=== PATIENT | male | born 1960 | race African-American/Black ===

== ENCOUNTER 2020-06-17 00:43 | Inpatient (IN) | payer MEDICAID ==
[~2020-06-17] VITALS: Ht 177.8 cm; Wt 81.9 kg
--- NOTE | 2020-06-17 01:00 | NUR ---
PT HERE VIA [facility], STATES WAS SITTING IN CHAIR AND FELL OUT, STATES THAT HE HAD A SEIZURE AND HAS A HX OF SAME, HR 125 WITH SOME ECTOPY, PT STATES THAT HE HAS HAD CHEST PAIN ON AND OFF FOR "A LONG TIME" PT POOR DIFFICULT HISTORIAN
--- NOTE | 2020-06-17 01:26 | NUR ---
PT PULLED OUT IV, WILL RESTART AFTER FILMS COMPLETED RADIOLOGY AT BEDSIDE WELL [facility]
[2020-06-17] MEDS ORDERED: SODIUM CHLORIDE 0.9% 1,000ML IVBOLUS ONE (01:30)
[2020-06-17 01:59] LABS: ALANINE AMINOTRANSFERASE 59 U/L (12-78); ALBUMIN 3.8 g/dL (3.4-5.0); ANION GAP 8 mmol/L (5-15); CALCIUM 9.1 mg/dL (8.5-10.1); CHLORIDE 105 mmol/L (98-107); CREATININE 1.21 mg/dL (0.7-1.3)
[2020-06-17 02:00] LABS: MEAN CORPUSCULAR HEMOGLOBIN 32.1 pg (27.5-34.5); MEAN CORPUSCULAR HGB CONC 33.7 g/dL (33.2-36.2); MEAN CORPUSCULAR VOLUME 95.3 fL (81-97); MEAN PLATELET VOLUME 7.5 fL (7.4-10.4); PLATELET COUNT 232 x10^3/uL (130-400); RED BLOOD COUNT 5.03 x10^6/uL (4.38-5.82); RED CELL DISTRIBUTION WIDTH 12.9 % (9.4-14.8)
[2020-06-17 02:03] LABS: ALKALINE PHOSPHATASE 50 U/L (45-117); BILIRUBIN,TOTAL 0.3 mg/dL (0.2-1.0); TROPONIN I 0.345 ng/mL (0.000-0.045)
[2020-06-17] MEDS ORDERED: ASPIRIN 81 MG TABLET CHEW ONE (02:23)
[2020-06-17] MEDS ORDERED: ASPIRIN 325 MG TABLET PO ONE (02:30)
[2020-06-17 02:51] LABS: BASOPHILS # (AUTO) 0.01 x10^3/uL (0-0.1); BASOPHILS % (AUTO) 0 % (0-1); EOSINOPHILS # (AUTO) 0.05 x10^3/uL (0-0.4); EOSINOPHILS % (AUTO) 1 % (1-7); LYMPHOCYTES # (AUTO) 1.58 x10^3/uL (1-3.4); LYMPHOCYTES % (AUTO) 34 % (22-44); MD SCAN; MONOCYTES # (AUTO) 0.37 x10^3/uL (0.2-0.8); MONOCYTES % (AUTO) 8 % (2-9); NEUTROPHILS % (AUTO) 57 % (42-75)
[2020-06-17] MEDS ORDERED: OMNIPAQUE 350 MG/ML, 75ML BOTTLE ONE (03:06)
[2020-06-17] MEDS ORDERED: HEPARIN 25,000 UNITS/250ML PMX 250 ML ONE (03:55)
[2020-06-17] MEDS ORDERED: HEPARIN 5,000 UNITS/ML, 1ML ONE (03:55)
--- NOTE | 2020-06-17 04:10 | NUR ---
PT WEIGHED AT THIS TIME, TOELRATE WELL, IS WITHOUT COMPLAINTS OF PAIN AT THIS TIME
[2020-06-17] MEDS ORDERED: HEPARIN 25,000 UNITS/250ML PMX 250 ML IV PRN (04:30)
[2020-06-17] MEDS ORDERED: HEPARIN 5,000 UNITS/ML, 1ML IV ONE (04:30)
--- NOTE | 2020-06-17 04:46 | NUR ---
PT DC SECOND IV AT THIS TIME, WILL RESTART
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
[2020-06-17] MEDS ORDERED: SODIUM CHLORIDE 0.9% 1,000 ML IV SCH (05:10)
[2020-06-17] MEDS ORDERED: POLYETHYLENE GLYCOL 17 GM PACKET PO PRN (05:30)
[2020-06-17] MEDS ORDERED: DOCUSATE 100 MG CAPSULE PO PRN (05:30)
[2020-06-17] MEDS ORDERED: ONDANSETRON 2MG/ML, 2ML IVPush PRN (05:30)
[2020-06-17] MEDS ORDERED: POTASSIUM CHLORIDE 40 MEQ in SODIUM CHLORIDE 0.9% 500 ML IV ONE (05:30)
[2020-06-17] MEDS ORDERED: hydrALAzine 20 MG/ML, 1ML IVPush PRN (05:30)
[2020-06-17] MEDS ORDERED: ACETAMINOPHEN 325 MG TABLET PO PRN (05:30)
[2020-06-17] MEDS ORDERED: BISACODYL 10 MG SUPP PR PRN (05:30)
[2020-06-17] MEDS ORDERED: OXYcodone IR 5MG TABLET PO PRN (05:30)
[2020-06-17] MEDS ORDERED: PROMETHAZINE 25 MG/ML, 1ML IM PRN (05:30)
[2020-06-17] MEDS ORDERED: ONDANSETRON ODT 4 MG PO PRN (05:30)
[2020-06-17] MEDS ORDERED: morphine SULFATE 10 MG/ML, 1ML IVPush PRN (05:30)
[2020-06-17 05:36] VITALS: BP 178/107
[2020-06-17] MEDS: HEPARIN GTT MC SCH ×2 (06:00→12:08)
[2020-06-17 06:28] LABS: FREE T4 (FREE THYROXINE) 1.28 ng/dL (0.76-1.46); TROPONIN I 0.424 ng/mL (0.000-0.045)
[2020-06-17] MEDS ORDERED: HALOPERIDOL 5 MG/ML ONE (06:52)
[2020-06-17] MEDS ORDERED: HALOPERIDOL 5 MG/ML IM ONE (07:00)
[2020-06-17] MEDS ORDERED: QUETIAPINE 25MG TABLET PO ONE (07:30)
[2020-06-17] MEDS ORDERED: POTASSIUM CHLORIDE 20 MEQ TAB.ER.PRT PO ONE (07:30)
[2020-06-17 07:35] VITALS: BP 129/76
[2020-06-17] MEDS ORDERED: RISPERIDONE 1 MG TAB.RAPDIS PO PRN (10:00)
[2020-06-17] MEDS ORDERED: LORazepam 2 MG/ML, 1ML IVPush PRN (10:00)
[2020-06-17] MEDS: POTASSIUM CHLORIDE 20 MEQ, MAGNESIUM SULFATE 1 GM, MVI ADULT 10 ML, THIAMINE 200 MG, FO... IV SCH (10:23)
[2020-06-17 11:52] LABS: TROPONIN I 0.452 ng/mL (0.000-0.045)
[2020-06-17 13:14] LABS: AMPHETAMINE SCREEN, URINE Positive (Negative); BARBITURATE SCREEN, URINE Negative (Negative); BENZODIAZEPINE SCREEN, URINE Negative (Negative); CANNABINOID SCREEN, URINE Negative (Negative); COCAINE SCREEN, URINE Negative (Negative); METHADONE SCREEN, URINE Negative (Negative); OPIATE SCREEN, URINE Negative (Negative)
[2020-06-17 13:49] VITALS: BP 143/88
[2020-06-17] MEDS: RISPERIDONE 1 MG TAB.RAPDIS PO SCH (19:55)
[2020-06-17 19:58] VITALS: BP 141/89
[2020-06-18 01:57] VITALS: BP 170/92
[2020-06-18 04:25] LABS: BASOPHILS # (AUTO) 0.02 x10^3/uL (0-0.1); BASOPHILS % (AUTO) 1 % (0-1); EOSINOPHILS # (AUTO) 0.11 x10^3/uL (0-0.4); EOSINOPHILS % (AUTO) 3 % (1-7); LYMPHOCYTES # (AUTO) 1.36 x10^3/uL (1-3.4); LYMPHOCYTES % (AUTO) 36 % (22-44); MD NO; MEAN CORPUSCULAR HEMOGLOBIN 31.9 pg (27.5-34.5); MEAN CORPUSCULAR HGB CONC 33.5 g/dL (33.2-36.2); MEAN CORPUSCULAR VOLUME 95.1 fL (81-97); MEAN PLATELET VOLUME 7.3 fL (7.4-10.4); MONOCYTES # (AUTO) 0.27 x10^3/uL (0.2-0.8); MONOCYTES % (AUTO) 7 % (2-9); NEUTROPHILS # (AUTO) 2.07 x10^3/uL (1.8-6.8); NEUTROPHILS % (AUTO) 54 % (42-75); PLATELET COUNT 227 x10^3/uL (130-400); RED BLOOD COUNT 4.95 x10^6/uL (4.38-5.82); RED CELL DISTRIBUTION WIDTH 13.7 % (9.4-14.8)
[2020-06-18 04:34] LABS: ALBUMIN 3.2 g/dL (3.4-5.0); ANION GAP 5 mmol/L (5-15); CALCIUM 8.9 mg/dL (8.5-10.1); CHLORIDE 108 mmol/L (98-107)
[2020-06-18 04:42] LABS: ALANINE AMINOTRANSFERASE 55 U/L (12-78); ALKALINE PHOSPHATASE 45 U/L (45-117); BILIRUBIN,TOTAL 0.7 mg/dL (0.2-1.0); CHOL/HDL RATIO 4.2; CHOLESTEROL, TOTAL 163 mg/dL (140-239); CREATININE 0.84 mg/dL (0.7-1.3); HDL CHOL % 24 % (26-37); HDL CHOLESTEROL (DIRECT) 39 mg/dL (40-60); LDL CHOLESTEROL,CALCULATED 108 mg/dL (54-169); LDL/HDL RATIO 2.8 (0.5-3.0); TOTAL PROTEIN 7.5 g/dL (6.4-8.2); TRIGLYCERIDES 78 mg/dL (50-200); TROPONIN I 0.482 ng/mL (0.000-0.045); VLDL CHOLESTEROL 16 mg/dL (0-25)
[2020-06-18] MEDS: ASPIRIN 81 MG TABLET EC PO SCH (08:05)
[2020-06-18] MEDS: RISPERIDONE 1 MG TAB.RAPDIS PO SCH ×2 (08:05→21:14)
[2020-06-18] MEDS ORDERED: REGADENOSON 0.4 MG/5 ML SYRINGE ONE (08:18)
[2020-06-18 08:33] VITALS: BP 131/81
[2020-06-18] MEDS: POTASSIUM CHLORIDE 20 MEQ, MAGNESIUM SULFATE 1 GM, MVI ADULT 10 ML, THIAMINE 200 MG, FO... IV SCH (10:00)
[2020-06-18 13:10] VITALS: BP 151/85
[2020-06-18] MEDS: CARVEDILOL 6.25 MG TABLET PO SCH (18:43)
[2020-06-18] MEDS ORDERED: ATORVASTATIN 40 MG TABLET PO SCH (21:00)
[2020-06-18 21:05] VITALS: BP 135/92
[2020-06-19 01:50] VITALS: BP 125/79
[2020-06-19] MEDS: CARVEDILOL 6.25 MG TABLET PO SCH (05:51)
[2020-06-19] MEDS: ASPIRIN 81 MG TABLET EC PO SCH (05:51)
[2020-06-19 07:42] VITALS: BP 150/84
[2020-06-19] MEDS: RISPERIDONE 1 MG TAB.RAPDIS PO SCH (08:06)
[2020-06-19 12:17] VITALS: BP 153/88
[2020-06-19] MEDS ORDERED: ASPI81TA45 PO (15:04)
[2020-06-19] MEDS ORDERED: ATOR40TA78 PO (15:04)
[2020-06-19] MEDS ORDERED: CARV6.2512 PO (15:04)
== END 2020-06-19 16:57 | disposition home or self-care (01) | DRG 281 ==
LOC: ED 02:35 → EDIP 04:16 → 5SO 05:20
PROVIDERS: ADMIT Internal Medicine; ATTEND Hospitalist
DX: I21.4 Non-ST elevation (NSTEMI) myocardial infarction (principal); I16.1 Hypertensive emergency; F17.200 Nicotine dependence, unspecified, uncomplicated; F15.129 Other stimulant abuse with intoxication, unspecified; G40.909 Epilepsy, unspecified, not intractable, without status epilepticus; M16.11 Unilateral primary osteoarthritis, right hip; Z59.0 Homelessness; Z91.14 Patient's other noncompliance with medication regimen; Z91.19 Patient's noncompliance with other medical treatment and regimen
CPT/HCPCS: 36415; 70450; 71045; 71275; 78452; 80053; 80061; 80307; 82550; 83036; 83735; 84439; 84443; 84484; 85025; 85520; 93005; 93017; 93306; 96361; 96374; 96375; 99285; 99406; G0378; J1644; J2785; J3411; J3475; J3480; Q9967; A9502; C9898; J1630; J7030

== ENCOUNTER 2020-07-04 08:41 | Emergency (ER) | payer MEDICAID ==
[~2020-07-04] VITALS: Ht 177.8 cm; Wt 80.7 kg
[~2020-07-04 08:41] MED LIST: ASPI81TA45 PO; ATOR40TA78 PO; CARV6.2512 PO
[2020-07-04 08:44] VITALS: BP 165/84
--- NOTE | 2020-07-04 09:37 | NUR ---
pt ambulatory to room. Asked to remove shoe for MD exam.
--- NOTE | 2020-07-04 09:56 | NUR ---
Pt assisted with getting sock off of right foot which pt reports as worst. Large painful calluses to bottom of foot. Feet very dry. Pt states that he puts lotion with baby oil on them everytime he showers, but he [place] at the [place] term and cannot shower every day.
--- NOTE | 2020-07-04 10:25 | NUR ---
Discussed in depth foot care instructions with patient. Stressed need to see a radio talk show host. Pt very agreable and ready for discharge.
== END 2020-07-04 10:50 | disposition home or self-care (01) ==
LOC: ED 09:21
DX: M79.675 Pain in left toe(s) (principal); M79.674 Pain in right toe(s); R26.2 Difficulty in walking, not elsewhere classified; Z90.89 Acquired absence of other organs
CPT/HCPCS: 82962; 99282